=== PATIENT | female | born 1950 | race Caucasian/White ===

== ENCOUNTER → 2024-10-15 | Outpatient (CLI) | payer MEDICARE, BC, SELFPAY ==
[2024-10-15 12:43] LABS: Free T4 (Free Thyroxine) 0.84 ng/dL (0.89-1.76); Thyroid Stimulating Hormone 9.93 uIU/mL (0.55-4.78)
== END | disposition home or self-care (01) ==
LOC: COPL 11:16
PROVIDERS: PCP Family Medicine; Referring Provider Family Medicine; Visit Provider Family Medicine
DX: E03.9 Hypothyroidism, unspecified (principal)
CPT/HCPCS: 36415; 84439; 84443

== ENCOUNTER → 2025-01-25 | Outpatient (CLI) | payer MEDICARE, BC, SELFPAY ==
[2025-01-25 17:11] LABS: T4 (Thyroxine) 6.7 mcg/dL (4.5-10.9); Thyroid Stimulating Hormone 2.42 uIU/mL (0.55-4.78)
== END | disposition home or self-care (01) ==
PROVIDERS: PCP Family Medicine; Referring Provider Family Medicine; Visit Provider Family Medicine
DX: E03.9 Hypothyroidism, unspecified (principal)
CPT/HCPCS: 36415; 84436; 84443

== ENCOUNTER → 2025-11-04 | Outpatient (CLI) | payer MEDICARE, BC, SELFPAY ==
[2025-11-04 11:18] LABS: Glucose Estimated Average 114 mg/dL (80-131); Hemoglobin A1C 5.6 % Hgb (4.8-6.0)
[2025-11-04 11:29] LABS: Free T4 (Free Thyroxine) 0.94 ng/dL (0.89-1.76); Thyroid Stimulating Hormone 6.68 uIU/mL (0.55-4.78)
== END | disposition home or self-care (01) ==
PROVIDERS: PCP Family Medicine; Referring Provider Family Medicine; Visit Provider Family Medicine
DX: E03.9 Hypothyroidism, unspecified (principal); E11.9 Type 2 diabetes mellitus without complications
CPT/HCPCS: 36415; 83036; 84439; 84443